=== PATIENT | male | born 1980 | race Caucasian/White ===

== ENCOUNTER 2020-09-16 01:35 | Emergency (ER) | payer MEDICAID ==
[~2020-09-16] VITALS: Ht 180.3 cm; Wt 102.1 kg
[~2020-09-16 01:35] MED LIST: HYDR-1421
[2020-09-16 01:53] VITALS: BP 129/80
== END 2020-09-16 05:15 | disposition left against medical advice (07) ==
LOC: ER 01:38
DX: M25.572 Pain in left ankle and joints of left foot (principal); M25.552 Pain in left hip; M25.562 Pain in left knee; Z53.21 Procedure and treatment not carried out due to patient leaving prior to being seen by health care provider
CPT/HCPCS: 73501; 73562; 73610

== ENCOUNTER 2021-07-22 15:34 | Emergency (ER) | payer MEDICAID ==
[~2021-07-22] VITALS: Ht 177.8 cm; Wt 99.8 kg
[2021-07-22] MEDS ORDERED: ONDANSETRON HCL 4 MG/2 ML VIAL IV ONE (16:00)
[2021-07-22] MEDS ORDERED: HYDROmorphone HCL 2 MG/ML VL IV ONE ×2 (16:00→17:00)
[2021-07-22] MEDS ORDERED: SODIUM CHLORIDE 0.9% 1,000 ML IV ONE ×3 (16:00→16:15)
[2021-07-22] MEDS ORDERED: PIPERACILLIN-TAZOB 3.375GM 100 ML IV ONE (16:15)
[2021-07-22 16:33] LABS: Basophils # (auto) 0 10 ^3/uL (0-0.2); Basophils % (auto) 0.5 % (0.0-2.0); Eosinophils # (auto) 0.3 10 ^3/uL (0-0.8); Eosinophils % (auto) 4.1 % (0.0-7.0); Hematocrit 41.9 % (41.0-53.0); Hemoglobin 14.7 g/dL (13.5-17.5); Lymphocytes # (auto) 2.4 10 ^3/uL (0.4-5.4); Lymphocytes % (auto) 39.7 % (10.0-50.0); Mean Corpuscular Hemoglobin 30.8 pg (28.0-32.0); Monocytes # (auto) 0.3 10 ^3/uL (0-1.3); Monocytes % (auto) 5.3 % (0.0-12.0); Neutrophils # (auto) 3.1 10 ^3/uL (1.6-8.6); Neutrophils % (auto) 50.4 % (37.0-80.0); Nucleated Red Blood Cells % 0.1 %; Red Blood Cells 4.77 10^6/uL (4.5-5.90); Red Cell Distribution Width 12.9 % (11.8-14.3); White Blood Cell 6.2 10^3/uL (4.4-10.8)
[2021-07-22 16:58] LABS: Albumin 3.3 g/dL (3.4-5.0); Calcium 8.7 mg/dL (8.5-10.1); Potassium 3.5 mmol/L (3.5-5.1)
[2021-07-22 17:03] LABS: BUN/Creatinine Ratio 15.4; Bilirubin, Total 0.6 mg/dL (0.2-1.0); Total Protein 6.9 g/dL (6.4-8.2)
[2021-07-22 17:07] LABS: INR 1.01 (0.9-1.15); Partial Thromboplastin Time 26.4 sec (23.6-33.0)
[2021-07-22 18:10] VITALS: BP 118/70
== END 2021-07-22 18:36 | disposition short-term general hospital (02) ==
LOC: ER 15:34
DX: S61.217A Laceration without foreign body of left little finger without damage to nail, initial encounter (principal); S61.213A Laceration without foreign body of left middle finger without damage to nail, initial encounter; S61.215A Laceration without foreign body of left ring finger without damage to nail, initial encounter; F17.210 Nicotine dependence, cigarettes, uncomplicated; Z79.899 Other long term (current) drug therapy; Z88.8 Allergy status to other drugs, medicaments and biological substances; W26.0XXA Contact with knife, initial encounter; Y93.89 Activity, other specified; Y92.89 Other specified places as the place of occurrence of the external cause; Y99.8 Other external cause status
CPT/HCPCS: 36415; 71045; 73130; 80053; 85025; 85610; 85730; 96365; 96366; 96375; 96376; 99285; J1170; J2405; J2543; J7030